=== PATIENT | male | born 1975 | race Caucasian/White ===

== ENCOUNTER 2018-02-16 20:59 | Emergency (ER) | payer SELFPAY ==
[2018-02-16] MEDS ORDERED: DECADRON 10MG INJ. IV ONE (21:16)
[2018-02-16] MEDS ORDERED: MORPHINE SULFATE 4 MG INJ IV ONE (21:17)
[2018-02-16] MEDS ORDERED: Cyclobenzaprine 10 MG PO ONE (21:17)
[2018-02-16] MEDS ORDERED: TORAdol 30 mg Injection IV ONE (21:17)
[2018-02-16] MEDS ORDERED: TORAdol 30 mg Injection ONE (21:19)
[2018-02-16] MEDS ORDERED: Cyclobenzaprine 10 MG ONE (21:19)
[2018-02-16] MEDS ORDERED: DECADRON 10MG INJ. ONE (21:20)
[2018-02-16] MEDS ORDERED: MORPHINE SULFATE 4 MG INJ ONE (21:20)
--- NOTE | 2018-02-16 21:23 | ERPHSYRPT ---
- History of Present Illness Time Seen by Provider: 02/16/18 21:10 Source: patient Exam Limitations: no limitations Patient Subjective Stated Complaint: pt states that at 1600 today he was helping his ex move a couch and felt a pop and then lower back pain that has gotten progressively worse. pt states that he has taken ibuprofen and naproxen before coming into the ED. Triage Nursing Assessment: pt is alert and oriented. pt is ambulatory. skin is pink, dry, and supple. mucous membranes moist. lower back shows no external signs of trauma. no bruising, bleeding, redness, or warmth noted. Physician History: 42 y/o male with history of lumbar bulging discs comes to the ER after moving furniture this afternoon and experienced a popping sensation in his lower back. Pt states that the pain has gotten worse. Pt describes the pain as sharp, constant, 9/10, worse with movement, with radiation down legs and not relieved by naproxen. Pt denies any leg weakness or bowel/urinary incontinence. Pt mentions that the pain is similar to when he had his surgery a few years ago. Timing/Duration: today Method of Injury: bending Quality: sharp Back Pain Location: lumbar spine Back Pain Radiation: upper legs Severity of Pain-Max: severe Severity of Pain-Current: severe Modifying Factors: Improves With: nothing Previous symptoms: same symptoms as today Allergies/Adverse Reactions: No Known Drug Allergies Allergy (Verified 06/30/16 17:08) Home Medications: No Home Meds [No Home Meds] 1 [facility] 10/05/15 [History] Hx Tetanus, Diphtheria Vaccination/Date Given: Yes Hx Influenza Vaccination/Date Given: No Hx Pneumococcal Vaccination/Date Given: No - Review of Systems Constitutional: No Fever, No Chills Eyes: No Symptoms Ears, Nose, & Throat: No Symptoms Respiratory: No Cough, No Dyspnea Cardiac: No Chest Pain, No Edema, No Syncope Abdominal/Gastrointestinal: No Abdominal Pain, No Nausea, No Vomiting, No Diarrhea Genitourinary Symptoms: No Dysuria Musculoskeletal: Back Pain, No Neck Pain Skin: No Rash Neurological: No Dizziness, No Focal Weakness, No Sensory Changes Psychological: No Symptoms Endocrine: No Symptoms All Other Systems: Reviewed and Negative - Past Medical History Pertinent Past Medical History: Yes Neurological History: No Pertinent History ENT History: No Pertinent History Cardiac History: No Pertinent History Respiratory History: No Pertinent History Endocrine Medical History: No Pertinent History Musculoskeletal History: Other GI Medical History: No Pertinent History History: No Pertinent History Psycho-Social History: No Pertinent History Male Reproductive Disorders: No Pertinent History Other Medical History: L1 and L2 disc injury x2. - Past Surgical History Past Surgical History: Yes Neuro Surgical History: No Pertinent History Cardiac: No Pertinent History Respiratory: No Pertinent History Gastrointestinal: No Pertinent History Genitourinary: No Pertinent History Musculoskeletal: Other Male Surgical History: No Pertinent History Other Surgical History: BACK SURGERY X2 - Social History Smoking Status: Current every day smoker How long have you smoked: 27 Exposure to second hand smoke: Yes Drug Use: none Patient Lives Alone: No - Nursing Vital Signs Nursing Vital Signs: Initial Vital Signs Temperature 98.3 F 02/16/18 20:59 Pulse Rate 95 H 02/16/18 20:59 Blood Pressure 154/82 02/16/18 20:59 O2 Sat by Pulse Oximetry 98 02/16/18 20:59 Pain Scale Pain Intensity [Lower Back] 8 Pain Intensity 5 - Physical Exam General Appearance: moderate distress, alert Eye Exam: PERRL/EOMI, eyes nml inspection Neck Exam: normal inspection, non-tender, supple, full range of motion, No meningismus, No midline tenderness Respiratory Exam: normal breath sounds, lungs clear, No respiratory distress Cardiovascular Exam: regular rate/rhythm, normal heart sounds Gastrointestinal Exam: soft, No tenderness, No mass Back Exam: vertebral tenderness, decreased range of motion, point tenderness Extremity Exam: normal inspection, normal range of motion, No calf tenderness, No pedal edema Neurologic Exam: alert, oriented x 3, cooperative, 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, normal mood/affect, nml station & gait, sensation nml, No motor deficits Skin Exam: normal color, warm, dry, No rash SpO2: 98 Oxygen Delivery: Room Air - Course Nursing assessment & vital signs reviewed: Yes Ordered Tests: Active Orders 24 hr Category Date Time Status IV Insertion STAT Care 02/16/18 21:16 Active LUMBAR SPINE W/O [CT] Stat Exams 02/16/18 21:15 Taken THORACIC SPINE W/O CONTRAST [CT] Stat Exams 02/16/18 21:15 Taken Medication Summary Discontinued Medications Generic Name Dose Route Start Last Admin Trade Name Freq PRN Reason Stop Dose Admin Cyclobenzaprine HCl 10 mg 02/16/18 21:17 02/16/18 21:21 Cyclobenzaprine 10 Mg PO 02/16/18 21:18 10 mg STAT ONE Administration Cyclobenzaprine HCl Confirm 02/16/18 21:19 Cyclobenzaprine 10 Mg Administered 02/16/18 21:20 Dose 10 mg .ROUTE .STK-MED ONE Dexamethasone Sodium Phosphate 10 mg 02/16/18 21:16 02/16/18 21:25 Decadron 10mg Inj. IV 02/16/18 21:17 10 mg STAT ONE Administration Dexamethasone Sodium Phosphate Confirm 02/16/18 21:20 Decadron 10mg Inj. Administered 02/16/18 21:21 Dose 10 mg .ROUTE .STK-MED ONE Hydromorphone HCl 1 mg 02/16/18 22:50 02/16/18 22:58 Hydromorphone 1 Mg/Ml Ampule IV 02/16/18 22:51 1 mg STAT ONE Administration Hydromorphone HCl Confirm 02/16/18 22:56 Dilaudid 2 Mg Injection Administered 02/16/18 22:57 Dose 2 mg .ROUTE .STK-MED ONE Ketorolac Tromethamine 30 mg 02/16/18 21:17 02/16/18 21:22 Toradol 30 Mg Injection IV 02/16/18 21:18 30 mg STAT ONE Administration Ketorolac Tromethamine Confirm 02/16/18 21:19 Toradol 30 Mg Injection Administered 02/16/18 21:20 Dose 30 mg .ROUTE .STK-MED ONE Morphine Sulfate 4 mg 02/16/18 21:17 02/16/18 21:24 Morphine Sulfate 4 Mg Inj IV 02/16/18 21:18 4 mg STAT ONE Administration Morphine Sulfate Confirm 02/16/18 21:20 Morphine Sulfate 4 Mg Inj Administered 02/16/18 21:21 Dose 4 mg .ROUTE .STK-MED ONE - Progress Progress: improved Progress Note: 02/16/18 22:[address] thoracic spine is within normal limits. The CT lumbar spine shows severe L3-L4 central posterior disc herniation. The patient feels better after receiving toradol, morphine, decadron and flexeril. Pt will receive a dose of dilaudid prior to being discharged. Pt will be referred to Dr Tamayo, the back surgeon at [facility]. - Departure Time of Disposition: 22:57 Departure Disposition: Home Clinical Impression: Spinal stenosis Qualifiers: Spinal region: lumbar Neurogenic claudication status: without neurogenic claudication Qualified Code(s): M48.061 - Spinal stenosis, lumbar region without neurogenic claudication Condition: Stable Critical Care Time: No Referrals: BRYSON TAMAYO [NON-STAFF PHY W/O PRIVILEGES] - Instructions: Spinal Stenosis (DC) Additional Instructions: Follow up with Dr Tamayo, back surgeon at [facility] tomorrow morning. Forms: Work/School Release Form Prescriptions: Cyclobenzaprine HCl [Flexeril] 10 mg PO TID PRN #15 tablet PRN Reason: Muscle Spasms Ketorolac Tromethamine [Toradol] 10 mg PO QID PRN #20 tablet PRN Reason: Pain Methylprednisolone [Medrol Dose Pack] 4 mg PO UD #21 tab Oxycodone HCl/Acetaminophen [Percocet 5-325 mg Tablet] 1 each PO QID PRN #15 tablet MDD 4 PRN Reason: Severe Pain
[2018-02-16] MEDS ORDERED: Hydromorphone 1 mg/ml Ampule IV ONE (22:50)
[2018-02-16] MEDS ORDERED: DILAUDID 2 MG INJECTION ONE (22:56)
[2018-02-16 22:59] VITALS: O2SAT 98
[2018-02-16 23:01] VITALS: BP 147/97; PULSE 84
--- NOTE | 2018-02-17 08:54 | XRAY ---
Indication: Low back pain following lifting injury. Multiple contiguous axial images obtained through the thoracic spine. Sagittal and coronal reformatted images obtained. Comparison: None No acute fracture, suspicious bony lesions, or spinal canal stenosis. Sagittal and coronal reformatted images demonstrates normal alignment with disc spaces preserved. No acute compression fracture or subluxation. Visualized noncontrasted soft tissues demonstrates bilateral dependent lung atelectasis, mediastinal calcified nodes, and splenic calcified granulomas. Impression: 1. Normal CT thoracic spine. 2. Incidental benign soft tissue findings. Comment: Preliminary interpretation was made by [facility]. No discrepancy. CT DI 107.64
--- NOTE | 2018-02-17 08:58 | XRAY ---
Indication: Low back pain following lifting injury. Multiple contiguous axial images obtained through the lumbar spine. Sagittal and coronal reformatted images obtained. Comparison: None No acute fracture or suspicious bony lesions. There is L3-S1 broad-based disc bulges with L3-L5 spinal canal stenosis. Sagittal and coronal reformatted images demonstrates normal alignment with L5-S1 disc space narrowing. No acute compression fracture or subluxation. Visualized noncontrasted soft tissues unremarkable. Impression: L3-S1 degenerative disc disease greatest at the L3-L5 levels. Outpatient MRI may yield further information. Comment: Preliminary interpretation was made by [facility]. No discrepancy. CT DI 81.79
== END 2018-02-16 23:24 | disposition home or self-care (01) ==
LOC: ED 20:59
DX: M48.061 Spinal stenosis, lumbar region without neurogenic claudication (principal); X50.0XXA Overexertion from strenuous movement or load, initial encounter
CPT/HCPCS: 36000; 72128; 72131; 96374; 96375; 99283; 99284; J1100; J1170; J1885; J2270; A9270-GY

== ENCOUNTER 2019-04-27 18:13 | Emergency (ER) | payer MEDICAID, OTHER ==
--- NOTE | 2019-04-27 18:16 | ERPHSYRPT ---
- History of Present Illness Time Seen by Provider: 04/27/19 18:15 Source: patient Exam Limitations: no limitations Physician History: 43 y/o right handed. white male presents one week after being stung hornet right 4th digit. pt has been using triple antibiotic ointment. not improving. no fever. last tetanus injection 1 to 2 years ago. Timing/Duration: week(s) (1) Quality: other (pt states does not hurt much at all) Severity: mild Location: hands (right 4th digit) Possible Causes: insect sting Associated Symptoms: blisters, swelling/mass/lumps Allergies/Adverse Reactions: No Known Drug Allergies Allergy (Verified 06/30/16 17:08) Home Medications: No Home Meds [No Home Meds] 1 [facility] 10/05/15 [History] Hx Tetanus, Diphtheria Vaccination/Date Given: Yes Hx Influenza Vaccination/Date Given: No Hx Pneumococcal Vaccination/Date Given: No - Review of Systems Constitutional: No Symptoms Eyes: No Symptoms Ears, Nose, & Throat: No Symptoms Respiratory: No Symptoms Cardiac: No Symptoms Abdominal/Gastrointestinal: No Symptoms Genitourinary Symptoms: No Symptoms Musculoskeletal: No Symptoms Skin: No Symptoms (redness and swelling dorsal aspect right 4th digit.) Neurological: No Symptoms Psychological: No Symptoms Endocrine: No Symptoms Hematologic/Lymphatic: No Symptoms Immunological/Allergic: No Symptoms All Other Systems: Reviewed and Negative - Past Medical History Pertinent Past Medical History: Yes Neurological History: No Pertinent History ENT History: No Pertinent History Cardiac History: No Pertinent History Respiratory History: No Pertinent History Endocrine Medical History: No Pertinent History Musculoskeletal History: Other GI Medical History: No Pertinent History History: No Pertinent History Psycho-Social History: No Pertinent History Male Reproductive Disorders: No Pertinent History Other Medical History: L1 and L2 disc injury x2. - Past Surgical History Past Surgical History: Yes Neuro Surgical History: No Pertinent History Cardiac: No Pertinent History Respiratory: No Pertinent History Gastrointestinal: No Pertinent History Genitourinary: No Pertinent History Musculoskeletal: Other Male Surgical History: No Pertinent History Other Surgical History: BACK SURGERY X2 - Social History Smoking Status: Current every day smoker How long have you smoked: 27 Exposure to second hand smoke: Yes Drug Use: none Patient Lives Alone: No - Physical Exam General Appearance: no apparent distress, alert Eye Exam: PERRL/EOMI Ears, Nose, Throat Exam: normal ENT inspection, moist mucous membranes Neck Exam: normal inspection, non-tender, supple, full range of motion Respiratory Exam: airway intact, No chest tenderness, No respiratory distress Gastrointestinal/Abdomen Exam: No tenderness Rectal Exam: not done Back Exam: normal range of motion, No CVA tenderness, No vertebral tenderness Extremity Exam: inflammation (right 4th digit swelling and redness. no odor. mild central drainage and fibrinous exudate. no abscess. 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 no ointments, lotions and creams. take medications as prescribed. follow up with primary doctor for persistent symptoms. return to ED if symptoms worsen. Prescriptions: Cephalexin Mh 500 mg [Keflex 500 mg] 500 mg PO TID #21 capsule Prednisone 10 mg [Deltasone 10 mg] 10 mg PO TID #6 tablet
[2019-04-27] MEDS ORDERED: Rocephin 1000 MG INJ IM ONE (18:24)
[2019-04-27] MEDS ORDERED: Rocephin 1000 MG INJ ONE (18:37)
[2019-04-27 19:01] VITALS: BP 137/86; PULSE 70; O2SAT 98
== END 2019-04-27 19:02 | disposition home or self-care (01) ==
LOC: ED 18:13
DX: L08.9 Local infection of the skin and subcutaneous tissue, unspecified (principal); W57.XXXA Bitten or stung by nonvenomous insect and other nonvenomous arthropods, initial encounter
CPT/HCPCS: 96372; 99283; J0696

== ENCOUNTER 2019-10-28 10:57 | Emergency (ER) | payer MEDICAID ==
[2019-10-28] MEDS ORDERED: DECADRON 10MG INJ. IM ONE (11:13)
[2019-10-28] MEDS ORDERED: DECADRON 10MG INJ. ONE (11:21)
--- NOTE | 2019-10-28 11:21 | ERPHSYRPT ---
- History of Present Illness Time Seen by Provider: 10/28/19 11:15 Source: patient Exam Limitations: no limitations Physician History: Patient has a history of lumbar surgery times two, with last one in 2014. Patient had to move heavy objects last week due to moving residences, but otherwise had no specific injury, fall or auto accident recently. Timing/Duration: day(s) (2) Method of Injury: lifting Quality: sharp, aching Back Pain Location: lumbar spine Back Pain Radiation: lower legs (left side only) Severity of Pain-Max: severe Severity of Pain-Current: severe Modifying Factors: Improves With: rest. Worsens With: movement Associated Symptoms: lower back pain, No fever, No chills, No sweating, No urinary incontinence, No loss of bowel control, No constipation, No nausea, No vomiting, No problems urinating, No light-headedness, No dizziness, No numbness in legs/feet, No weakness, No sensory/motor loss, No tingling in legs/feet, No muscle spasms Previous symptoms: same symptoms as today, no recent treatment Allergies/Adverse Reactions: No Known Drug Allergies Allergy (Verified 10/28/19 11:06) Hx Tetanus, Diphtheria Vaccination/Date Given: Yes Hx Influenza Vaccination/Date Given: No Hx Pneumococcal Vaccination/Date Given: No - Review of Systems Constitutional: No Fever, No Chills Eyes: No Eye Pain, No Vision Changes Ears, Nose, & Throat: No Mouth Swelling, No Throat Pain, No Painful Swallowing Respiratory: No Cough, No Dyspnea Cardiac: No Chest Pain, No Edema, No Syncope Abdominal/Gastrointestinal: No Abdominal Pain, No Nausea, No Vomiting, No Diarrhea Genitourinary Symptoms: No Dysuria, No Hematuria, No Incontinence, No Urinary Retention, No Flank Pain Musculoskeletal: Back Pain, No Neck Pain, No Fall, No Myalgias Skin: No Rash Neurological: No Dizziness, No Focal Weakness, No Headache, No Lethargy, No Parasthesia, No Sensory Changes Psychological: No Anxiety, No Emotional Lability Endocrine: No Polyuria, No Polydipsia, No Excessive Sweating Hematologic/Lymphatic: No Easy Bleeding, No Easy Bruising All Other Systems: Reviewed and Negative - Past Medical History Pertinent Past Medical History: Yes Neurological History: No Pertinent History ENT History: No Pertinent History Cardiac History: No Pertinent History Respiratory History: No Pertinent History Endocrine Medical History: No Pertinent History Musculoskeletal History: Other GI Medical History: No Pertinent History History: No Pertinent History Psycho-Social History: No Pertinent History Male Reproductive Disorders: No Pertinent History Other Medical History: L1 and L2 disc injury x2. - Past Surgical History Past Surgical History: Yes Neuro Surgical History: No Pertinent History Cardiac: No Pertinent History Respiratory: No Pertinent History Gastrointestinal: No Pertinent History Genitourinary: No Pertinent History Musculoskeletal: Other Male Surgical History: No Pertinent History Other Surgical History: BACK SURGERY X2 - Social History Smoking Status: Current every day smoker How long have you smoked: 27 Exposure to second hand smoke: Yes Drug Use: none Patient Lives Alone: No - Nursing Vital Signs Nursing Vital Signs: Initial Vital Signs Temperature 98.1 F 10/28/19 11:07 Pulse Rate 102 H 10/28/19 11:07 Respiratory Rate 18 10/28/19 11:07 Blood Pressure 168/97 10/28/19 11:07 O2 Sat by Pulse Oximetry 98 10/28/19 11:07 Pain Scale Pain Intensity 4 - Physical Exam General Appearance: no apparent distress, alert Eye Exam: PERRL/EOMI, eyes nml inspection Neck Exam: normal inspection, non-tender, supple, full range of motion, No meningismus, No midline tenderness Respiratory Exam: normal breath sounds, lungs clear, airway intact, No respiratory distress, No diminished breath sounds, No accessory muscle use, No crackles/rales, No rhonchi, No wheezing Cardiovascular Exam: regular rate/rhythm, normal heart sounds, capillary refill <2 sec Gastrointestinal Exam: soft, normal bowel sounds, No tenderness, No distention, No mass, No guarding, No pulsatile mass, No rebound, No hernia Back Exam: other (small lower lumbar midline scar), No CVA tenderness, No vertebral tenderness, No rash Extremity Exam: normal inspection, normal range of motion, pelvis stable, No calf tenderness, No parasthesia, No limited range of motion, No pedal edema Peripheral Pulses: dorsalis-pedis (R): 2+, dorsalis-pedis (L): 2+ Neurologic Exam: alert, oriented x 3, cooperative, 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, normal mood/affect, nml cerebellar function, nml station & gait, sensation nml, No motor deficits, No motor weakness Skin Exam: normal color, warm, dry, No rash SpO2 Interpretation: normal O2 Delivery: Room Air - Course Nursing assessment & vital signs reviewed: Yes - Radiology Exams L-Spine X-ray Interpretation: Other (per Radiologist interpretation from 02/16/2018: Impression: L3-S1 degenerative disc disease greatest at the L3-L5 levels.) Ordered Tests: Medication Summary Discontinued Medications Generic Name Dose Route Start Last Admin Trade Name Prasanth PRN Reason Stop Dose Admin Dexamethasone Sodium Phosphate 10 mg 10/28/19 11:13 10/28/19 11:25 Decadron 10mg Inj. IM 10/28/19 11:14 10 mg STAT ONE Administration Dexamethasone Sodium Phosphate Confirm 10/28/19 11:21 Decadron 10mg Inj. Administered 10/28/19 11:22 Dose 10 mg .ROUTE .STK-MED ONE - Progress Progress: improved Progress Note: 10/28/19 11:42 Pulse is down to 85. No focal neurologic deficits on repeat examination Counseled pt/family regarding: diagnosis, need for follow-up, rad results - Departure Departure Disposition: Home Clinical Impression: Acute exacerbation of chronic low back pain, Sciatica of left side, Elevated blood pressure reading without diagnosis of hypertension, Degenerative disc disease, lumbar Condition: Good Critical Care Time: No Referrals: DOCTOR,NO FAMILY [Primary Care Provider] - JOSEPH IBANEZ MD [ACTIVE STAFF] - 10/28/19 (call to make a follow-up appointment today) Instructions: Low Back Pain (DC), Radiculopathy (DC), Sciatica Exercises Additional Instructions: Return immediately back to the emergency room if any loss of strength in the lower extremities, loss of sensation in the lower extremities, loss of bowel or bladder control, new fever, no abdominal pain, new blood in the urine, and the blood in the stool or any other concerning signs or symptoms that were not present at today's emergency department visit for immediate reevaluation in the department. Discharge/Care Plan BRICENORUBÉN Tracey was seen on 10/28/19 in the Emergency Room. The patient was counseled regarding Diagnosis,Lab Imaging studies, and need for follow up and when to return to the Emergency Room. Prescriptions given: Medrol Dosepak, Percocet Discharge Note I have spoken with the patient. I have explained the patient's condition, diagnosis and treatment plan based on the information available to me at this time. I have answered the patient's and/or caregiver's questions and addressed any concerns. The patient has a good understanding of the patient's diagnosis, condition and treatment plan as can be expected at this point. The vital signs have been stable. The patient's condition is stable and appropriate for discharge from the emergency department. The patient will pursue further outpatient evaluation with the primary care physician referral or other designated or consulting physician as outlined in the discharge instructions. The patient is agreeable to this plan of care and follow-up instructions have been explained in detail. The patient has received these instruction. The patient is aware that any significant change in condition or worsening of symptoms should prompt an immediate return to this or the closest emergency department or call 911. Prescriptions: Oxycodone HCl/Acetaminophen [Percocet 5-325 mg Tablet] 1 each PO Q6H PRN PRN # 12 tablet MDD 4 PRN Reason: Pain Methylprednisolone Packet [Medrol Dosepack] 4 mg PO UD #1 packet
[2019-10-28 11:42] VITALS: BP 146/95; PULSE 85; O2SAT 95
== END 2019-10-28 12:20 | disposition home or self-care (01) ==
LOC: ED 10:57
DX: M54.5 Low back pain (principal); G89.29 Other chronic pain; M54.42 Lumbago with sciatica, left side; R03.0 Elevated blood-pressure reading, without diagnosis of hypertension; M51.36 Other intervertebral disc degeneration, lumbar region; X50.0XXA Overexertion from strenuous movement or load, initial encounter
CPT/HCPCS: 96372; 99283; J1100

== ENCOUNTER 2020-05-01 13:06 | Emergency (ER) | payer MEDICAID, OTHER ==
[2020-05-01 13:21] VITALS: O2SAT 98
--- NOTE | 2020-05-01 13:25 | ERPHSYRPT ---
- History of Present Illness Time Seen by Provider: 05/01/20 13:11 Source: patient Exam Limitations: no limitations Physician History: Is a 44-year-old patient presenting to the ED for evaluation of a questionable spider bite left knee that occurred yesterday States that he thinks it is a brown recluse spider [place] This morning he woke up with pain, redness, swelling and a pus point on the bite site Patient states that he squeezed the pus out, at the site appeared red and swollen and he wanted to come in for an evaluation Reports some pain, denies malaise/nausea/vomiting/fever/pallor/jaundice/icterus/dark urine last tetanus shot 3 yrs ago Allergies/Adverse Reactions: No Known Drug Allergies Allergy (Verified 05/01/20 13:22) Hx Tetanus, Diphtheria Vaccination/Date Given: Yes Hx Influenza Vaccination/Date Given: No Hx Pneumococcal Vaccination/Date Given: No Travel Risk - International Travel Have you traveled outside of the country in past 3 weeks: No - Coronavirus Screening Are you exhibiting any of the following symptoms?: No Close contact with a COVID-19 positive Pt in past 14-21 Days: No - Review of Systems Constitutional: No Symptoms Eyes: No Symptoms Ears, Nose, & Throat: No Symptoms Respiratory: No Symptoms Cardiac: No Symptoms Abdominal/Gastrointestinal: No Symptoms Genitourinary Symptoms: No Symptoms Musculoskeletal: No Symptoms Skin: Cellulitis Neurological: No Symptoms Psychological: No Symptoms Endocrine: No Symptoms All Other Systems: Reviewed and Negative - Past Medical History Pertinent Past Medical History: Yes Neurological History: No Pertinent History ENT History: No Pertinent History Cardiac History: No Pertinent History Respiratory History: No Pertinent History Endocrine Medical History: No Pertinent History Musculoskeletal History: Other GI Medical History: No Pertinent History History: No Pertinent History Psycho-Social History: No Pertinent History Male Reproductive Disorders: No Pertinent History Other Medical History: L1 and L2 disc injury x2. - Past Surgical History Past Surgical History: Yes Neuro Surgical History: No Pertinent History Cardiac: No Pertinent History Respiratory: No Pertinent History Gastrointestinal: No Pertinent History Genitourinary: No Pertinent History Musculoskeletal: Other Male Surgical History: No Pertinent History Other Surgical History: BACK SURGERY X2 - Social History Smoking Status: Current every day smoker How long have you smoked: 27 Exposure to second hand smoke: Yes Drug Use: none Patient Lives Alone: No - Nursing Vital Signs Nursing Vital Signs: Initial Vital Signs Temperature 98.0 F 05/01/20 13:12 Pulse Rate 74 05/01/20 13:12 Respiratory Rate 16 05/01/20 13:12 Blood Pressure 139/98 05/01/20 13:12 O2 Sat by Pulse Oximetry 98 05/01/20 13:12 Pain Scale Pain Intensity 6 - Physical Exam General Appearance: no apparent distress Eye Exam: PERRL/EOMI, eyes nml inspection, No scleral icterus, No pale conjunctivae Ears, Nose, Throat Exam: normal ENT inspection, TMs normal, pharynx normal Neck Exam: normal inspection, non-tender, supple, full range of motion Respiratory Exam: normal breath sounds, No chest tenderness, No respiratory distress Cardiovascular Exam: regular rate/rhythm, normal heart sounds, normal peripheral pulses Gastrointestinal/Abdomen Exam: soft, normal bowel sounds, No tenderness Back Exam: normal inspection Extremity Exam: normal inspection Neurologic Exam: alert, oriented x 3, cooperative Skin Exam: rash (a 3 x 3 cm elevated, erythematous, warm area of cellulitis on left knee- has a central excoriated area from patient popping the pus out. There is no evidence of necrosis. There is no dusky area.) Lymphatic Exam: No adenopathy SpO2 Interpretation: normal O2 Delivery: Room Air - Progress Progress Note: This is a 44-year-old patient presenting to the ED for evaluation of possible spider bite on his left knee Signs stable on arrival And and examined in ED room 5 Bedside [id number] ultrasound showed no evidence of abscess Does have evidence of cellulitis, he has been counseled on brown recluse spider bites currently there is no evidence of necrosis or toxic systemic symptoms-been advised to watch for these and follow-up with primary care physician in the morning To be placed on doxycycline, to keep the area clean, cool compresses for at least 10 to 15 minutes 3 times a day, patient of limb TETANUS is up-to-date 05/01/20 13:46 - Departure Departure Disposition: Home (IN STABLE CONDITION) Clinical Impression: Spider bite, Cellulitis Condition: Stable Critical Care Time: No Referrals: ILANA ISAAC, TRANSPORTATION PLANNER [ALLIED HEALTH PROFESSION STAFF] - Instructions: Spider Bites Additional Instructions: Discharge/Care Plan RUBÉN BRICENO was seen on 05/01/20 in the Emergency Room. The patient was counseled regarding Diagnosis,Lab results, Imaging studies, need for follow up and when to return to the Emergency Room. Prescriptions given: Discharge Note I have spoken with the patient and/or caregivers. I have explained the patient's condition, diagnosis and treatment plan based on the information available to me at this time. I have answered the patient's and/or caregiver's questions and addressed any concerns. The patient and/or caregivers have as good understanding of the patient's diagnosis, condition and treatment plan as can be expected at this point. The vital signs have been stable. The patient's condition is stable and appropriate for discharge from the emergency department. The patient will pursue further outpatient evaluation with the primary care physician or other designated or consulting physician as outlined in the discharge instructions. The patient and/or caregivers are agreeable to this plan of care and follow-up instructions have been explained in detail. The patient and/or caregivers have received these instruction. The patient/and or caregivers are aware that any significant change in condition or worsening of symptoms should prompt an immediate return to this or the closest emergency department or call 911. Prescriptions: Doxycycline Hyclate 100 mg [Vibramycin 100 MG] 100 mg PO BID #14 tab
[2020-05-01 14:03] VITALS: BP 144/77; PULSE 88
== END 2020-05-01 14:03 | disposition home or self-care (01) ==
LOC: ED 13:06
DX: L03.115 Cellulitis of right lower limb (principal); T63.301A Toxic effect of unspecified spider venom, accidental (unintentional), initial encounter
CPT/HCPCS: 99283

== ENCOUNTER 2021-04-09 21:56 | Emergency (ER) | payer OTHER ==
[2021-04-09] MEDS ORDERED: POLYSPORIN EYE OINT. OP ONE (21:57)
[2021-04-09] MEDS ORDERED: TETRACAINE 0.5% STERI-UNIT SOL OP ONE (22:37)
[2021-04-09] MEDS ORDERED: TETRACAINE 0.5% STERI-UNIT SOL OP STA (22:41)
--- NOTE | 2021-04-09 22:58 | ERPHSYRPT ---
- History of Present Illness Time Seen by Provider: 04/09/21 22:48 Source: patient Exam Limitations: no limitations Patient Subjective Stated Complaint: pt states he has had lt eye pain and tearing last night and today. states today he can see a black spot on his eye. Triage Nursing Assessment: pt alert and oriented, answers questions approp. pt ambulatory with steady gait noted. redness noted around eye. redness noted to sclera. black dot noted over iris. Physician History: pt was grinding and got metal in left eye. Saturday. removed after anest with Q-Tip but rust ring remains and unable to buff out. ant chamber adn globe intact. fundus benign, vis acuity 2020 r , 20/20 Left disatnt , but 20/20 all near. vis ronquillo intact. neg FB with double lid eversion. Pt advised that he will need to see opth for removal of rust ring in a few days, as this can leave scar on cornea or complications. tet last 3 years ago Timing/Duration: yesterday Location: left eye Severity: moderate Apparent Injury: yes Associated Symptoms: pain, burning, redness, foreign body sensation Visual Assistive Devices: None Chemical Exposure: No Trauma: Yes (grinding metal) Welding Arc/Tanning Bed Exposure: No Allergies/Adverse Reactions: No Known Drug Allergies Allergy (Verified 04/09/21 22:19) Home Medications: No Reportable Medications [No Reported Medications] 04/09/21 [History] Hx Tetanus, Diphtheria Vaccination/Date Given: Yes Hx Influenza Vaccination/Date Given: No Hx Pneumococcal Vaccination/Date Given: No Immunizations Up to Date: Yes Travel Risk - International Travel Have you traveled outside of the country in past 3 weeks: No - Coronavirus Screening Are you exhibiting any of the following symptoms?: No Close contact with a COVID-19 positive Pt in past 14-21 Days: No - Vaccine Status Have you recieved a Covid-19 vaccination: No - Review of Systems Constitutional: No Fever, No Chills Eyes: Eye Redness, Photophobia, Foreign Body Sensation Ears, Nose, & Throat: No Symptoms Respiratory: No Cough, No Dyspnea Cardiac: No Chest Pain, No Edema, No Syncope Abdominal/Gastrointestinal: No Abdominal Pain, No Nausea, No Vomiting, No Diarrhea Genitourinary Symptoms: No Dysuria Musculoskeletal: No Back Pain, No Neck Pain Skin: No Rash Neurological: No Dizziness, No Focal Weakness, No Sensory Changes Psychological: No Symptoms Endocrine: No Symptoms All Other Systems: Reviewed and Negative - Past Medical History Pertinent Past Medical History: Yes Neurological History: No Pertinent History ENT History: No Pertinent History Cardiac History: No Pertinent History Respiratory History: No Pertinent History Endocrine Medical History: No Pertinent History Musculoskeletal History: Other GI Medical History: No Pertinent History History: No Pertinent History Psycho-Social History: No Pertinent History Male Reproductive Disorders: No Pertinent History Other Medical History: L1 and L2 disc injury x2. - Past Surgical History Past Surgical History: Yes Neuro Surgical History: No Pertinent History Cardiac: No Pertinent History Respiratory: No Pertinent History Gastrointestinal: No Pertinent History Genitourinary: No Pertinent History Musculoskeletal: Other Male Surgical History: No Pertinent History Other Surgical History: BACK SURGERY X2 - Social History Smoking Status: Current every day smoker How long have you smoked: 30 yrs Exposure to second hand smoke: Yes Drug Use: none Patient Lives Alone: No - Nursing Vital Signs Nursing Vital Signs: Initial Vital Signs Temperature 99.0 F 04/09/21 22:07 Pulse Rate 94 H 04/09/21 22:07 Respiratory Rate 16 04/09/21 22:07 Blood Pressure 139/93 04/09/21 22:07 O2 Sat by Pulse Oximetry 96 04/09/21 22:07 Pain Scale Pain Intensity 3 - Physical Exam General Appearance: no apparent distress Vision Acuity Degree Evaluation Phase: Uncorrected Vision Acuity Right Eye: 20/20 Vision Acuity Left Eye: near vison is 20/20 Eye Exam: right eye: normal inspection, left eye: PERRL, EOMI, erythema, foreign body (removed with Q tip), other (residual rust ring for opth ref) Ears, Nose, Throat Exam: normal ENT inspection Neck Exam: normal inspection, non-tender, supple Respiratory Exam: normal breath sounds, lungs clear, airway intact Cardiovascular Exam: regular rate/rhythm, normal heart sounds Gastrointestinal Exam: soft, No tenderness, No mass Extremity Exam: normal inspection, normal range of motion Neurologic: alert, oriented x 3, cooperative, plans examiner II-XII nml as tested, normal mood/affect, nml cerebellar function, nml station & gait Skin Exam: normal color, warm, dry, No rash Lymphatic: No adenopathy SpO2 Interpretation: normal SpO2: 96 O2 Delivery: Room Air Procedures - Eye Procedure Timeout: Performed Tetracaine Drops Administered: Yes Eye FB Removal: removal w/ cotton swab Remaining Material after FB Removal: rust ring Eye Irrigated w/ Saline (ccs): 100 Antibiotic Oinment/Drps Admin: left eye - Course Nursing assessment & vital signs reviewed: Yes - CT Exams Other CT Interpretation: Tele-radiologist Report, Other (no residual FB or globe penetration) Ordered Tests: Active Orders 24 hr Category Date Time Status ORBITS WITHOUT CONTRAST [CT] Stat Exams 04/09/21 23:30 Taken Medication Summary Generic Name Dose Route Start Last Admin Trade Name Frejoana PRN Reason Stop Dose Admin Bacitracin/Polymyxin B Sulfate 1 gm 04/10/21 10:00 04/10/21 00:36 Polysporin Eye Oint. 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 call NEELAM Saturday to be seen . return meantime if not improving or additional symptoms or concerns. use the eye ointment 4 times daily - wait 20 minutes after application before driving until vision clears following application.
[2021-04-10 01:14] VITALS: BP 129/86; PULSE 74; O2SAT 95
--- NOTE | 2021-04-10 07:32 | XRAY ---
Indication: Left eye foreign body removal. Right sclera and photophobia. Multiple contiguous axial images obtained through the orbits. Sagittal and coronal reformatted images obtained. Comparison: None No acute fracture, suspicious bony lesions, or radiopaque foreign body. Orbits including retro-orbital structures are bilaterally symmetric. There is mild/moderate mucosal thickening of the paranasal sinuses bilaterally. Moderate nasoseptal deviation to the right. Visualized noncontrasted soft tissues including base of the brain are unremarkable. Impression: 1. Incidental paranasal sinus disease and nasal septal deviation. 2. Remaining CT orbits negative. Specifically negative for radiopaque foreign body. Comment: Preliminary interpretation was made by [facility]. No critical discrepancy.
[2021-04-10] MEDS ORDERED: POLYSPORIN EYE OINT. OP SCH (10:00)
== END 2021-04-10 01:18 | disposition home or self-care (01) ==
LOC: ED 21:56
DX: T15.92XA Foreign body on external eye, part unspecified, left eye, initial encounter (principal); X58.XXXA Exposure to other specified factors, initial encounter; Y93.89 Activity, other specified; Y92.9 Unspecified place or not applicable
CPT/HCPCS: 65220; 70480; 99283; A9270-GY